=== PATIENT | male | born 1960 | race Caucasian/White ===

== ENCOUNTER 2017-12-17 11:38 | Inpatient (IN) ==
[2017-12-17] MEDS ORDERED: Isovue-370 500 ML INFUS..BTL IV ONE (11:51)
[2017-12-17] MEDS ORDERED: 0.9 % Sodium Chloride 500 ML IVC ONE (11:51)
[2017-12-17] MEDS ORDERED: 0.9 % Sodium Chloride 1,000 ML IVC ONE ×2 (11:52→11:56)
[2017-12-17 12:11] LABS: Basophils % 0.5 %; Eosinophils # 0.1 K/mcL (0.0-0.6); Eosinophils % 1.8 %; Hematocrit 39.6 % (37.5-50.1); Hemoglobin 13.5 g/dL (12.9-16.9); Immature Granulocytes % 0.3 % (0-4); Lymphocytes # 2.5 K/mcL (0.6-4.6); Lymphocytes % 32.9 %; Mean Corpuscular HGB Conc 34.1 g/dL (31.6-35.5); Mean Corpuscular Hemoglobin 29.3 pg (28.0-33.3); Mean Corpuscular Volume 86.1 fL (83.0-100.0); Mean Platelet Volume 11.2 fL (9.4-12.4); Monocytes # 0.6 K/mcL (0.0-1.3); Monocytes % 7.6 %; Neutrophils # 4.4 K/mcL (1.6-8.9); Platelet Count 278 K/mcL (140-400); Red Cell Distribution Width 13.6 % (11.5-14.5); Segmented Neutrophils % 56.9 %
[2017-12-17 12:18] LABS: INR 1.1
[2017-12-17 12:21] LABS: Activated Partial Thrombo Time 28.3 Seconds (26.0-36.0)
[2017-12-17 12:28] LABS: Alanine Aminotransferase 21 Units/L (7-52); Albumin 4.2 g/dL (3.5-5.7); Albumin/Globulin Ratio 1.2 (1.1-2.2); Alkaline Phosphatase 60 Units/L (34-104); Aspartate Amino Transferase 19 Units/L (13-39); BUN/Creatinine Ratio 11 (6-26); Bilirubin,Indirect 0.4 mg/dL (0.0-1.2); Bilirubin,Total 0.4 mg/dL (0.3-1.0); Blood Urea Nitrogen 16 mg/dL (6-20); Calcium 9.2 mg/dL (8.6-10.3); Carbon Dioxide 23 mEq/L (23-29); Chloride 104 mEq/L (98-107); Globulin 3.5 g/dL (2.4-3.5); Glucose 154 mg/dL (70-105); Lipase 11 Units/L (11-82); Magnesium 2.2 mg/dL (1.6-2.6); Osmolality,Calculated 284 (280-300); Potassium 4.2 mEq/L (3.5-5.1); Sodium 135 mEq/L (136-145); Total Protein 7.7 g/dL (6.4-8.9); eGFR For African Americans > 60 (> 60); eGFR For Non-African Americans 52 (> 60)
[2017-12-17 12:58] LABS: VBG HCO3 22 mEq/L (21-27); VBG PCO2 48 mmHg (41-51); VBG PH 7.28 pH Units (7.32-7.42); VBG PO2 78 mmHg (25-50)
[2017-12-17 13:22] LABS: Bilirubin,Urine Negative (Negative); Blood,Urine Negative (Negative); Clarity,Urine Clear (Clear); Color,Urine Yellow (Yellow); Glucose,Urine (UA) Normal (Normal); Ketones,Urine Negative (Negative); Leukocyte Esterase,Urine Negative (Negative); Nitrite,Urine Negative (Negative); PH,Urine 6.5 pH Units (5.0-8.0); Protein,Urine Negative (Neg-Trace); Specific Gravity,Urine 1.029 (1.010-1.025); Urobilinogen,Urine Normal (Normal)
--- NOTE | 2017-12-17 13:58 | Emergency Department Note ---
Disposition Clinical Impression: Diaphoresis, Renal insufficiency, Dehydration Hypotension Qualifiers: Hypotension type: unspecified hypotension type Qualified Code(s): I95.9 - Hypotension, unspecified Chest pain Qualifiers: Chest pain type: unspecified Qualified Code(s): R07.9 - Chest pain, unspecified Disposition: Admitted As Inpatient Condition: Fair Time of Disposition: 14:08 General Adult HPI - General Stated complaint: Weakness Time Seen by Provider: 12/17/17 11:50 Source: patient, other Mode of arrival: ambulatory Limitations: no limitations Nursing Notes Reviewed: Yes Vital Signs Reviewed: Yes - History of Present Illness HPI Narrative: Patient presents emergency room with complaint of feeling very ill. Patient woke up this morning and felt okay. He was driving and his friends also because his blood pressure felt elevated and he felt lightheaded. He takes his blood pressure medication prior to leaving. During transport the patient started to have some heaviness in his chest and tingling in his bilateral arms over the medial aspect of the arms. He arrived his friend's house and he was diaphoretic pale and very uncomfortable feeling. They brought him immediately to the emergency room by personal vehicle. He denies any other symptoms prior to these events here today. Onset (ago): hour(s) Radiation: non-radiation Pain Scale: 0 Consistency: constant Improves with: nothing Worsens with: other Associated symptoms: Reports: chest pain, diaphoresis, nausea/vomiting Treatments Prior to Arrival: none - Related Data Allergies Allergy/AdvReac Type Severity Reaction Status Date / Time reglan AdvReac Numbness Uncoded 12/17/17 12:30 All systems ED: reviewed and negative except as stated. Review of Systems: As Per HPI Constitutional: Denies: fever, chills, weakness ENT ED: Denies: congestion Cardiovascular: Reports: chest pain. Denies: palpitations, dyspnea on exertion , orthopnea, edema Respiratory: Reports: dyspnea. Denies: cough, wheezes, sputum production Gastrointestinal: Reports: nausea, vomiting. Denies: abdominal pain, diarrhea Genitourinary: Denies: urgency, dysuria, frequency Musculoskeletal: Denies: back pain, neck pain Integumentary: Denies: rash, abrasion Neurological: Denies: headache Past Medical History - Past Medical History Attestation: Yes The following information was validated with the patient. Source: patient Medical history: Reports: diabetes, hypertension - Social History Smoking Status: Unknown if ever smoked Alcohol use: Reports: unknown Drug use: Reports: unknown Physical Exam - General Limitations: no limitations General appearance: lethargic - Head Head exam: atraumatic, normocephalic, normal inspection - Eye Eye exam: Present: normal appearance, PERRL, EOMI - ENT ENT exam: normal exam - Neck Neck exam: Present: normal inspection, full ROM, trachea midline - Chest Chest inspection: Present: normal inspection, symmetric chest wall rise. Absent : tenderness - Respiratory Respiratory exam: Present: normal lung sounds bilaterally. Absent: respiratory distress, accessory muscle use - Cardiovascular Cardiovascular exam: Present: regular rate, normal rhythm, normal heart sounds - Abdominal Exam Abdominal exam: Present: soft, Non-Tender, normal bowel sounds. Absent: tenderness, distention, guarding, rebound, rigidity - Extremities Exam Extremities exam: Present: normal inspection - Back Exam Back exam: Present: normal inspection - Neurological Exam Neurological exam: Present: alert, oriented X3, CN II-XII intact - Skin Skin exam: Present: intact, diaphoresis, pallor Course Course Narrative: Patient seen and examined the time of arrival. See history of present illness. Patient presented the emergency room by personal vehicle. In the triage process the patient was found to be profoundly hypotensive. He is diaphoretic pale and appeared very ill. Patient is describing chest tightness and back pain that radiated to bilateral arms. Patient noted the symptoms started just prior to coming into the emergency room within the last hour. Immediately the patient was brought back to room and IV access was obtained EKG Accu-Chek were established. 2 L of fluid were given wide open and bilateral IVs. Patient was immediately sent to the CAT scan room for evaluation a CT angiography the chest and abdomen rule out dissection. Just prior to the patient leaving the ER room to had the CAT scan I did a point of care ultrasound of the aorta showing what appears to be a 2 cm aorta in diameter just above the umbilicus and just below the umbilicus and the abdomen. No free fluid was noted in the abdomen at that time. Lungs were clear heart was regular. Patient does not have a pacemaker. Vital signs were hypotensive. Patient did appear to be very ill and diaphoretic. CT angiography is completed immediately showing no acute signs of dissection. Patient was brought back over to emergency room with fluid resuscitation was started. 3 L of fluid were ordered at this time. Patient denies any specific heart-related issue at this point. Screening laboratory workup was also completed for septic-like presentation urinalysis chest x-ray as well as lactic acid labs including CBC chemistry electrolytes and troponin were added on. BNP will also be collected. Patient will most likely need admission after the workup and treatment course are established. No other acute issues noted this point. - Reevaluation(s) Reevaluation #1: Patient CT angiogram of the chest and abdomen were negative for acute dissection or aneurysm. Primary nodule was noted. No other acute surgical findings noted at this time. EKG showed a sinus rhythm. It was repeated approximately 30 minutes after arrival here the emergency room and there is no acute changes. Labs are reviewed and appear to be unremarkable this time. Fluid resuscitation is to continue. Patient is feeling better after the fluids were started. Disposition will be admission the hospital for definitive management what appears to be profound hypotension with potential cardiac related source. Observation will be completed in the hospital setting. Patient was informed is comfortable this plan. No other acute infectious etiology. We will continue to monitor here until admission process is completed. Hospitalist patient this time Time: 14:04 Reevaluation #2: Patient was discussed with the hospitalist Dr. Paz. We reviewed the patient' s hypotension, renal insufficiency, suspicion for dehydration. Also advised the patient to get a significant contrast load requires admission for further observation the kidney function as well as a continued fluid hydration. No other questions or concerns at this time. Patient does not have any focal infectious etiology. Patient no other recommendations or issues this time. Patient is stable. Admission Time: 14:48 Vital Signs O2 Sat by Pulse Oximetry 95 12/17/17 11:59 Temperature 0 F L 12/17/17 12:00 Pulse Rate 86 12/17/17 12:58 Respiratory Rate 20 12/17/17 12:58 Blood Pressure 118/78 12/17/17 12:58 O2 Sat by Pulse Oximetry 100 12/17/17 12:58 Oxygen Delivery Oxygen Delivery Room Air Medical Decision Making - MDM Narrative Medical decision making narrative: Hypotension, diaphoresis, chest pain - Medical Records Medical records reviewed: Yes I reviewed the patient's medical records. - Lab Data Lab results reviewed: Yes I reviewed the patient's lab results. Result diagrams: 12/17/17 11:56 12/17/17 11:56 Lab Results 12/17/17 12/17/17 12/17/17 Range/Units 11:56 11:56 11:56 WBC (4.3-11.1) K/mcL RBC (4.19-5.50) M/mcL Hgb (12.9-16.9) g/dL Hct (37.5-50.1) % MCV (83.0-100.0) fL MCH (28.0-33.3) pg MCHC (31.6-35.5) g/dL RDW (11.5-14.5) % Plt Count (140-400) K/mcL MPV (9.4-12.4) fL Immature Gran % (0-4) % Seg Neutrophils % % Lymphocytes % % Monocytes % % Eosinophils % % Basophils % % Neutrophils # (1.6-8.9) K/mcL Lymphocytes # (0.6-4.6) K/mcL Monocytes # (0.0-1.3) K/mcL Eosinophils # (0.0-0.6) K/mcL Basophils # (0.0-0.2) K/mcL PT 12.0 (9.4-12.1) Seconds INR 1.1 APTT 28.3 (26.0-36.0) Seconds VBG pH (7.32-7.42) pH Units VBG pCO2 (41-51) mmHg VBG pO2 (25-50) mmHg VBG HCO3 (21-27) mEq/L Sodium 135 L (136-145) mEq/L Potassium 4.2 (3.5-5.1) mEq/L Chloride 104 (98-107) mEq/L Carbon Dioxide 23 (23-29) mEq/L BUN 16 (6-20) mg/dL Creatinine 1.40 H (0.70-1.30) mg/dL Est GFR ( Amer) > 60 (> 60) Est GFR (Non-Af Amer) 52 L (> 60) BUN/Creatinine Ratio 11 (6-26) Glucose 154 H (70-105) mg/dL Calculated Osmolality 284 (280-300) Lactic Acid (0.5-2.2) mmol/L Calcium 9.2 (8.6-10.3) mg/dL Magnesium 2.2 (1.6-2.6) mg/dL Total Bilirubin 0.4 (0.3-1.0) mg/dL Direct Bilirubin 0.0 (0.0-0.2) mg/dL Indirect Bilirubin 0.4 (0.0-1.2) mg/dL AST 19 (13-39) Units/L ALT 21 (7-52) Units/L Alkaline Phosphatase 60 (34-104) Units/L Troponin I (< 0.04) ng/mL B-Natriuretic Peptide 14 (Less than 100) pg/mL Serum Total Protein 7.7 (6.4-8.9) g/dL Albumin 4.2 (3.5-5.7) g/dL Globulin 3.5 (2.4-3.5) g/dL Albumin/Globulin Ratio 1.2 (1.1-2.2) Lipase 11 (11-82) Units/L Urine Color (Yellow) Urine Clarity (Clear) Urine pH (5.0-8.0) pH Units Ur Specific [place] (1.010-1.025) Urine Protein (Neg-Trace) mg/dL Urine Glucose (UA) (Normal) mg/dL Urine Ketones (Negative) mg/dL Urine Blood (Negative) Urine Nitrite (Negative) Urine Bilirubin (Negative) Urine Urobilinogen (Normal) mg/dL Ur Leukocyte Esterase (Negative) Ur Culture Indicated? (NO) Blood Type Antibody Screen 12/17/17 12/17/17 12/17/17 Range/Units 11:56 11:56 11:56 WBC 7.7 (4.3-11.1) K/mcL RBC 4.60 (4.19-5.50) M/mcL Hgb 13.5 (12.9-16.9) g/dL Hct 39.6 (37.5-50.1) % MCV 86.1 (83.0-100.0) fL MCH 29.3 (28.0-33.3) pg MCHC 34.1 (31.6-35.5) g/dL RDW 13.6 (11.5-14.5) % Plt Count 278 (140-400) K/mcL MPV 11.2 (9.4-12.4) fL Immature Gran % 0.3 (0-4) % Seg Neutrophils % 56.9 % Lymphocytes % 32.9 % Monocytes % 7.6 % Eosinophils % 1.8 % Basophils % 0.5 % Neutrophils # 4.4 (1.6-8.9) K/mcL Lymphocytes # 2.5 (0.6-4.6) K/mcL Monocytes # 0.6 (0.0-1.3) K/mcL Eosinophils # 0.1 (0.0-0.6) K/mcL Basophils # 0.0 (0.0-0.2) K/mcL PT (9.4-12.1) Seconds INR APTT (26.0-36.0) Seconds VBG pH (7.32-7.42) pH Units VBG pCO2 (41-51) mmHg VBG pO2 (25-50) mmHg VBG HCO3 (21-27) mEq/L Sodium (136-145) mEq/L Potassium (3.5-5.1) mEq/L Chloride (98-107) mEq/L Carbon Dioxide (23-29) mEq/L BUN (6-20) mg/dL Creatinine (0.70-1.30) mg/dL Est GFR ( Amer) (> 60) Est GFR (Non-Af Amer) (> 60) BUN/Creatinine Ratio (6-26) Glucose (70-105) mg/dL Calculated Osmolality (280-300) Lactic Acid 2.1 (0.5-2.2) mmol/L Calcium (8.6-10.3) mg/dL Magnesium (1.6-2.6) mg/dL Total Bilirubin (0.3-1.0) mg/dL Direct Bilirubin (0.0-0.2) mg/dL Indirect Bilirubin (0.0-1.2) mg/dL AST (13-39) Units/L ALT (7-52) Units/L Alkaline Phosphatase (34-104) Units/L Troponin I < 0.03 (< 0.04) ng/mL B-Natriuretic Peptide (Less than 100) pg/mL Serum Total Protein (6.4-8.9) g/dL Albumin (3.5-5.7) g/dL Globulin (2.4-3.5) g/dL Albumin/Globulin Ratio (1.1-2.2) Lipase (11-82) Units/L Urine Color (Yellow) Urine Clarity (Clear) Urine pH (5.0-8.0) pH Units Ur Specific [place] (1.010-1.025) Urine Protein (Neg-Trace) mg/dL Urine Glucose (UA) (Normal) mg/dL Urine Ketones (Negative) mg/dL Urine Blood (Negative) Urine Nitrite (Negative) Urine Bilirubin (Negative) Urine Urobilinogen (Normal) mg/dL Ur Leukocyte Esterase (Negative) Ur Culture Indicated? (NO) Blood Type Antibody Screen 12/17/17 12/17/17 12/17/17 Range/Units 12:32 12:55 12:58 WBC (4.3-11.1) K/mcL RBC (4.19-5.50) M/mcL Hgb (12.9-16.9) g/dL Hct (37.5-50.1) % MCV (83.0-100.0) fL MCH (28.0-33.3) pg MCHC (31.6-35.5) g/dL RDW (11.5-14.5) % Plt Count (140-400) K/mcL MPV (9.4-12.4) fL Immature Gran % (0-4) % Seg Neutrophils % % Lymphocytes % % Monocytes % % Eosinophils % % Basophils % % Neutrophils # (1.6-8.9) K/mcL Lymphocytes # (0.6-4.6) K/mcL Monocytes # (0.0-1.3) K/mcL Eosinophils # (0.0-0.6) K/mcL Basophils # (0.0-0.2) K/mcL PT (9.4-12.1) Seconds INR APTT (26.0-36.0) Seconds VBG pH 7.28 L (7.32-7.42) pH Units VBG pCO2 48 (41-51) mmHg VBG pO2 78 H (25-50) mmHg VBG HCO3 22 (21-27) mEq/L Sodium (136-145) mEq/L Potassium (3.5-5.1) mEq/L Chloride (98-107) mEq/L Carbon Dioxide (23-29) mEq/L BUN (6-20) mg/dL Creatinine (0.70-1.30) mg/dL Est GFR ( Amer) (> 60) Est GFR (Non-Af Amer) (> 60) BUN/Creatinine Ratio (6-26) Glucose (70-105) mg/dL Calculated Osmolality (280-300) Lactic Acid (0.5-2.2) mmol/L Calcium (8.6-10.3) mg/dL Magnesium (1.6-2.6) mg/dL Total Bilirubin (0.3-1.0) mg/dL Direct Bilirubin (0.0-0.2) mg/dL Indirect Bilirubin (0.0-1.2) mg/dL AST (13-39) Units/L ALT (7-52) Units/L Alkaline Phosphatase (34-104) Units/L Troponin I (< 0.04) ng/mL B-Natriuretic Peptide (Less than 100) pg/mL Serum Total Protein (6.4-8.9) g/dL Albumin (3.5-5.7) g/dL Globulin (2.4-3.5) g/dL Albumin/Globulin Ratio (1.1-2.2) Lipase (11-82) Units/L Urine Color Yellow (Yellow) Urine Clarity Clear (Clear) Urine pH 6.5 (5.0-8.0) pH Units Ur Specific [place] 1.029 H (1.010-1.025) Urine Protein Negative (Neg-Trace) mg/dL Urine Glucose (UA) Normal (Normal) mg/dL Urine Ketones Negative (Negative) mg/dL Urine Blood Negative (Negative) Urine Nitrite Negative (Negative) Urine Bilirubin Negative (Negative) Urine Urobilinogen Normal (Normal) mg/dL Ur Leukocyte Esterase Negative (Negative) Ur Culture Indicated? NO (NO) Blood Type AB POSITIVE Antibody Screen NEGATIVE - Radiology Data Radiology results reviewed: Yes I reviewed the patient's radiology results. Chest x-ray is negative. CT angiography the chest and abdomen are unremarkable this time for acute pathology. Pulmonary nodule noted - EKG Data EKG #1 EKG attestation: Yes I reviewed and interpreted this EKG. EKG results narrative: EKG shows sinus rhythm. Ventricular rate of 89. [place] interval 148. QRS duration of 1. QTC of 447. [place] appears to be normal. Possible lateral ischemia and inferior ischemia noted with Q waves. No comparable EKG. Otherwise no acute signs of ST segment elevation or abnormality. Acute signs of WPW or Brugada syndrome. EKG #2 EKG attestation: Yes I reviewed and interpreted this EKG. EKG results narrative: Repeat EKG shows similar morphology. Ventricular rate of 89. [place] interval 148. QRS duration 11. QTC of 447. No acute signs of ST segment elevation or abnormality. Similar comparison to previous EKG Critical Care Time Critical Care Time: Yes Total Critical Care Time: 35 Attestation: Critical care performed: Time is exclusive of separately billable procedures. Time includes: direct patient care, patient reassessment, coordination of patient care, interpretation of data (laboratory data, radiology data, and respiratory data), review of patient's medical records, medical consultation and documentation of patient care. Procedures included in critical care time: Procedures excluded from critical care time:
--- NOTE | 2017-12-17 14:47 | Internal Med History&Physical ---
Date of Encounter: 12/17/17 Time of Encounter: 14:40 Internal Medicine - H&P: HPI Chief complaint: Chest pain History of present illness: Mr. Glasgow is a 57 year old male who presented with elevated blood pressure and lightheaded associated with chest pain and tingling in his bilateral arms over the medial aspect of the arms. In the Er he was profoundly hypotensive. Hw was treated with fluid. CT angiogram of the chest and abdomen were negative for acute dissection or aneurysm. Primary nodule was noted. Labs shows VARUN, EKG showed a sinus rhythm. HE was admitted for further evaluation. Past Med Surg Social Fam HX - Past Medical History Medical history: diabetes, hypertension - Social History Smoking Status: Unknown if ever smoked Alcohol use: unknown Drug use: unknown - Family History Father Living Status: Cause of : [place] Hx Family Cardiac Disorders: Yes ([place], pacer) Internal Medicine - H&P: Meds Atorvastatin [Lipitor] 40 mg PO HS 12/17/17 [History] Omeprazole [PriLOSEC] 40 mg PO DAILY 12/17/17 [History] traZODone [TraZODone] 50 - 100 mg PO HS 12/17/17 [History] Amlodipine Besylate 5 mg PO DAILY #30 tablet 12/18/17 [Rx] Lisinopril [Zestril] 20 mg PO DAILY #0 12/18/17 [Rx] 3 Allergy/AdvReac Type Severity Reaction Status Date / Time reglan AdvReac Numbness Uncoded 12/17/17 12:30 All Systems PM: A 10-system review of systems was performed and is negative for pertinent findings except as documented above in the HPI. - Constitutional Constitutional: lethargy, no chills, no fever(s), no night sweats - Cardiovascular Cardiovascular ROS IM: chest pain, diaphoresis, no dyspnea, no lightheadedness, no palpitations, no syncope - Respiratory Respiratory: no cough, no dyspnea, no wheezing, no excessive phlegm production - Gastrointestinal Gastrointestinal: no abdominal pain, no diarrhea, no hematemesis, no hematochezia, no melena, no nausea, no vomiting - Constitutional Vitals: Temp Pulse Resp BP Pulse Ox 0 F L 81 18 120/83 98 12/17/17 12:00 12/17/17 14:35 12/17/17 14:35 12/17/17 14:35 12/17/17 14:35 General appearance: Present: A&O X 3 - Head Head exam: Present: atraumatic, normocephalic - Respiratory Respiratory exam: Present: CTAB. Absent: accessory muscle use, rales, rhonchi, wheezes - Cardiovascular Cardiovascular exam: Present: RRR, +S1, +S2. Absent: diastolic murmur, gallop, rubs, systolic murmur - GI/Abdominal GI/Abdominal exam: Present: normal bowel sounds, soft, no peritoneal signs. Absent: distended, tenderness - Extremities Exam Extremities exam: Present: warm, radial pulses palpable and symmetrical. Absent : calf tenderness, cyanotic, pedal edema - Neurological Exam Neurological exam: Present: CN II-XII intact, oriented X3, no focal deficits. Absent: pronater drift, facial droop, speech deficit Internal Med - H&P Results - Labs CBC & Chem 7: 12/18/17 00:21 12/18/17 00:21 Labs: Short CBC 12/17/17 Range/Units 11:56 WBC 7.7 (4.3-11.1) K/mcL Hgb 13.5 (12.9-16.9) g/dL Hct 39.6 (37.5-50.1) % Plt Count 278 (140-400) K/mcL Neutrophils # 4.4 (1.6-8.9) K/mcL BMP 12/17/17 11:56 Sodium 135 L Potassium 4.2 Chloride 104 Carbon Dioxide 23 BUN 16 Creatinine 1.40 H Glucose 154 H Calcium 9.2 Cardiac Enzymes 12/17/17 Range/Units 11:56 Troponin I < 0.03 (< 0.04) ng/mL Liver Function 12/17/17 Range/Units 11:56 Total Bilirubin 0.4 (0.3-1.0) mg/dL Direct Bilirubin 0.0 (0.0-0.2) mg/dL AST 19 (13-39) Units/L ALT 21 (7-52) Units/L Alkaline Phosphatase 60 (34-104) Units/L Albumin 4.2 (3.5-5.7) g/dL Urine 12/17/17 Range/Units 12:58 Urine Color Yellow (Yellow) Urine Clarity Clear (Clear) Urine pH 6.5 (5.0-8.0) pH Units Ur Specific [place] 1.029 H (1.010-1.025) Urine Protein Negative (Neg-Trace) mg/dL Urine Glucose (UA) Normal (Normal) mg/dL - ABG Interpretation ABG results: 12/17/17 12:55 VBG pH 7.28 L VBG pCO2 48 VBG pO2 78 H VBG HCO3 22 - Impressions ITS Impressions Abdomen/Pelvis CTA 12/17/17 11:51 IMPRESSION: 1. Unremarkable appearance of the aorta. 2. Focal hazy area of primarily ground-glass opacities with few small nodular opacities also noted in the suprahilar right upper lobe. Findings are nonspecific but suggestive of infectious/ inflammatory process. 3. Few right-sided pulmonary nodules measuring up to approximately 7 mm. 4. Few incidental/chronic findings as described. RECOMMENDATIONS: Follow-up chest CT in 3 months to reassess ground-glass opacities and solid nodules per guidelines below: Fleischner Society guidelines for follow-up and management of incidentally detected pulmonary nodules: Multiple Solid Nodules: Nodule size equals 6-8 mm In a low-risk patient, CT at 3-6 months, then consider CT at 18-24 months. In a high-risk patient, CT at 3-6 months, then CT at 18-24 months. - Low risk patients include individuals with minimal or absent history of smoking and other known risk factors. - High risk patients include individuals with a history or smoking or known risk factors. Radiology 2017 http://pubs.[facility].org/doi/full/10.1148/[email or web address] D/ / Tanika Davis MD / Tanika Davis MD Interpreting Provider: Tanika Davis MD Chest CTA 12/17/17 11:51 IMPRESSION: 1. Unremarkable appearance of the aorta. 2. Focal hazy area of primarily ground-glass opacities with few small nodular opacities also noted in the suprahilar right upper lobe. Findings are nonspecific but suggestive of infectious/ inflammatory process. 3. Few right-sided pulmonary nodules measuring up to approximately 7 mm. 4. Few incidental/chronic findings as described. RECOMMENDATIONS: Follow-up chest CT in 3 months to reassess ground-glass opacities and solid nodules per guidelines below: Fleischner Society guidelines for follow-up and management of incidentally detected pulmonary nodules: Multiple Solid Nodules: Nodule size equals 6-8 mm In a low-risk patient, CT at 3-6 months, then consider CT at 18-24 months. In a high-risk patient, CT at 3-6 months, then CT at 18-24 months. - Low risk patients include individuals with minimal or absent history of smoking and other known risk factors. - High risk patients include individuals with a history or smoking or known risk factors. Radiology 2017 http://pubs.[facility].org/doi/full/10.1148/radiol.[email or web address] D/ / Tanika Davis MD / Tanika Davis MD Interpreting Provider: Tanika Davis MD Chest X-Ray 12/17/17 11:51 IMPRESSION: No acute process. D/ / Xavier Henry MD / Xavier Henry MD Interpreting Provider: Xavier Henry MD Head CT 12/17/17 11:58 IMPRESSION: Negative CT brain with no acute intracranial abnormality. D/ / Tanika Davis MD / Tanika Davis MD Interpreting Provider: Tanika Davis MD - Assessment and plan (1) Hypotension Status: Acute Assessment and plan: Most likelt 2/2 volume depletion , now resolved Qualifiers: Hypotension type: unspecified hypotension type Qualified Code(s): I95.9 - Hypotension, unspecified (2) Renal insufficiency Status: Acute Assessment and plan: Most likelt 2/2 volume depletion , Cont IV hydration (3) Dehydration Status: Acute (4) DVT prophylaxis Status: Acute Assessment and plan: We will place SCDs - Time Spent With Patient Total time spent is greater than 50% in coordination of care (as documented) at patient's floor/unit and/or counseling patient:
[2017-12-17] MEDS ORDERED: Acetaminophen 325 MG TABLET PO PRN (15:10)
[2017-12-17] MEDS ORDERED: Naloxone 0.4 MG/ML INJ IVP PRN (15:10)
[2017-12-17] MEDS: 0.9 % Sodium Chloride 1,000 ML IVC SCH (17:38)
[2017-12-17] MEDS: *HR* Heparin 5,000 UNIT/ML VIAL SQ SCH (17:39)
[2017-12-17] MEDS ORDERED: traZODone 50 MG TABLET PO SCH (21:00)
[2017-12-18] MEDS: 0.9 % Sodium Chloride 1,000 ML IVC SCH (01:22)
[2017-12-18 02:24] LABS: Basophils % 0.3 %; Eosinophils # 0.3 K/mcL (0.0-0.6); Hematocrit 34.8 % (37.5-50.1); Immature Granulocytes % 0.2 % (0-4); Lymphocytes # 3.4 K/mcL (0.6-4.6); Lymphocytes % 36.1 %; Mean Corpuscular HGB Conc 32.8 g/dL (31.6-35.5); Mean Corpuscular Hemoglobin 28.9 pg (28.0-33.3); Mean Corpuscular Volume 88.1 fL (83.0-100.0); Mean Platelet Volume 12.6 fL (9.4-12.4); Monocytes # 0.7 K/mcL (0.0-1.3); Monocytes % 6.9 %; Platelet Count 225 K/mcL (140-400); Red Blood Count 3.95 M/mcL (4.19-5.50); Red Cell Distribution Width 13.7 % (11.5-14.5); Segmented Neutrophils % 53.5 %
[2017-12-18 02:25] LABS: Hemoglobin 11.4 g/dL (12.9-16.9)
[2017-12-18 02:28] LABS: Prothrombin Time 11.1 Seconds (9.4-12.1)
[2017-12-18 02:30] LABS: Activated Partial Thrombo Time 25.6 Seconds (26.0-36.0)
[2017-12-18 02:44] LABS: Alanine Aminotransferase 16 Units/L (7-52); Albumin 3.4 g/dL (3.5-5.7); Albumin/Globulin Ratio 1.2 (1.1-2.2); Alkaline Phosphatase 50 Units/L (34-104); Aspartate Amino Transferase 14 Units/L (13-39); BUN/Creatinine Ratio 12 (6-26); Bilirubin,Total 0.2 mg/dL (0.3-1.0); Blood Urea Nitrogen 12 mg/dL (6-20); Calcium 8.3 mg/dL (8.6-10.3); Carbon Dioxide 25 mEq/L (23-29); Chloride 108 mEq/L (98-107); Chol/HDL Ratio 8.1 (0-4.9); Cholesterol 161 mg/dL (< 200); Globulin 2.8 g/dL (2.4-3.5); Glucose 143 mg/dL (70-105); HDL Cholesterol 20 mg/dL (40-59); LDL Cholesterol,Calculated 68 mg/dL (0-99); Magnesium 2.2 mg/dL (1.6-2.6); Osmolality,Calculated 288 (280-300); Phosphorous 2.9 mg/dL (2.7-4.5); Potassium 3.7 mEq/L (3.5-5.1); Sodium 138 mEq/L (136-145); Total Protein 6.2 g/dL (6.4-8.9); Triglycerides 366 mg/dL (< 150); eGFR For African Americans > 60 (> 60); eGFR For Non-African Americans > 60 (> 60)
[2017-12-18] MEDS: *HR* Heparin 5,000 UNIT/ML VIAL SQ SCH (06:10)
[2017-12-18 08:27] LABS: Bilirubin,Urine Negative (Negative); Blood,Urine Negative (Negative); Clarity,Urine Clear (Clear); Color,Urine Yellow (Yellow); Glucose,Urine (UA) Normal (Normal); Ketones,Urine Negative (Negative); Leukocyte Esterase,Urine Negative (Negative); Nitrite,Urine Negative (Negative); Protein,Urine Negative (Neg-Trace); Specific Gravity,Urine 1.012 (1.010-1.025); Urobilinogen,Urine Normal (Normal)
[2017-12-18 16:07] VITALS: BP 141/84
--- NOTE | 2017-12-18 18:17 | Discharge Summary ---
- NOTES TO OUTPATIENT PROVIDER Notes to Outpatient Provider: The patient was hypotensive at the time of admission to the emergency room. He got IV fluids. We ruled out myocardial infarction. He feels good. We will send him on lower dose lisinopril/ amlodipine. CT of chest showed R suprahilar non-specific nodule -- NEEDS REPEATED CT OF CHEST IN 3 MONTHS. Date of Encounter: 12/18/17 Time of Encounter: 18:15 - Discharge Diagnosis (1) Hypotension Priority: Primary Status: Acute Assessment and Plan: Resolved with IV fluids. Likely due to dehydration. Qualifiers: Hypotension type: unspecified hypotension type Qualified Code(s): I95.9 - Hypotension, unspecified (2) VARUN (acute kidney injury) Priority: Secondary Status: Resolved Assessment and Plan: As above. His creatinine is back to normal. (3) HTN (hypertension) Priority: Secondary Status: Chronic Assessment and Plan: Under control. Will continue lisinopril/amlodipine. Qualifiers: Hypertension type: essential hypertension Qualified Code(s): I10 - Essential (primary) hypertension (4) HLD (hyperlipidemia) Priority: Secondary Status: Chronic Qualifiers: Hyperlipidemia type: unspecified Qualified Code(s): E78.5 - Hyperlipidemia , unspecified (5) GERD (gastroesophageal reflux disease) Priority: Secondary Status: Chronic Qualifiers: Esophagitis presence: without esophagitis Qualified Code(s): K21.9 - Gastro -esophageal reflux disease without esophagitis (6) Pulmonary nodule Priority: Secondary Status: Acute Assessment and Plan: He needs follow-up CT of the chest in three months. Hospital course: Mr. Glasgow is a 57 year old male. The patient was hypotensive at the time of admission to the emergency room. He got IV fluids. We ruled out myocardial infarction. He feels good. We will send him on lower dose lisinopril/ amlodipine. CT of chest showed R suprahilar non-specific nodule -- NEEDS REPEATED CT OF CHEST IN 3 MONTHS. Discharge discussed with: patient, family - Time Spent with Patient Total time spent providing and/or coordinating discharge services: Greater than 30 minutes - Discharge Medications Prescriptions: Amlodipine Besylate 5 mg PO DAILY #30 tablet Home Medications: Atorvastatin [Lipitor] 40 mg PO HS 12/17/17 [History] Omeprazole [PriLOSEC] 40 mg PO DAILY 12/17/17 [History] traZODone [TraZODone] 50 - 100 mg PO HS 12/17/17 [History] Amlodipine Besylate 5 mg PO DAILY #30 tablet 12/18/17 [Rx] Lisinopril [Zestril] 20 mg PO DAILY #0 12/18/17 [Rx] Allergies/Adverse Reactions: 3 Allergy/AdvReac Type Severity Reaction Status Date / Time reglan AdvReac Numbness Uncoded 12/17/17 12:30 Date of admission: 12/17/17 15:10 Primary care physician: PCP NONE Discharging clinician: Jesus Turpin Anticipated date of discharge: 12/18/17 - Constitutional Vitals: Temp Pulse Resp BP Pulse Ox 98.0 F 72 18 141/84 97 12/18/17 16:05 12/18/17 16:05 12/18/17 16:05 12/18/17 16:05 12/18/17 16:05 General appearance: Present: A&O X 3, pleasant, no acute distress, answers questions appropriately - Respiratory Respiratory exam: Present: CTAB. Absent: rales, rhonchi, wheezes - Cardiovascular Cardiovascular exam: Present: RRR, +S1, +S2. Absent: diastolic murmur, gallop, rubs, systolic murmur - GI/Abdominal GI/Abdominal exam: Present: normal bowel sounds, soft. Absent: distended, tenderness - Patient Status Disposition: Home, Self-Care Condition: Good - Discharge Instructions Follow Up With: NONE,PCP [Primary Care Provider] - Forms: ED Satisfaction Letter Additional Instructions: Patient to call primary care physician on next business day to make a 3-5 day followup. Physician referral number given. Return to nearest emergency room for any new or worsening symptoms. - Diet and Activity Activity: resume usual activities as tolerated Diet: diabetic diet - VTE Documentation of Mechanical Device: Graduated compression elastic hosiery
--- NOTE | 2017-12-21 06:36 | Electrocardiograph Report ---
[address] [place], [place] [address] Test Date: 2017-12-17 Pat Name: Hima Glasgow Department: 104 Room: [facility] Gender: M Oil Change Technician: TMR : 1960 Requested By: Messi Oneill Order Number: [id number] Reading MD: Ariel Gudino Measurements Intervals [place] Rate: 93 P: 48 ME: 153 QRS: 55 QRSD: 92 T: 55 QT: 363 QTc: 414 Interpretive Statements SINUS RHYTHM POSSIBLE INFERIOR MYOCARDIAL INFARCTION, PROBABLY OLD Electronically Signed On 12-21-2017 6:35:02 EDT by Ariel Gudino
--- NOTE | 2017-12-21 06:38 | Electrocardiograph Report ---
[address] [address] Test Date: 2017-12-17 Pat Name: Hima Glasgow Department: 104 Room: [facility] Gender: M [employer] Ranger: TMR : 1960 Requested By: Messi Oneill Order Number: [id number] Reading MD: Ariel Gudino Measurements Intervals [place] Rate: 89 P: 33 NE: 148 QRS: 60 QRSD: 101 T: 53 QT: 401 QTc: 447 Interpretive Statements SINUS RHYTHM Electronically Signed On 12-21-2017 6:36:15 EDT by Ariel Gudino
== END 2017-12-18 18:45 | disposition home or self-care (01) | DRG 315 ==
LOC: 3NENU 11:38 → EMEROO 11:38 → SUATTDRO 15:10 → 3NENU 15:25
PROVIDERS: ADMIT Internal Medicine Nephrology; ATTEND Internal Medicine